=== PATIENT | male | born 2000 | race Caucasian/White ===

== ENCOUNTER → 2023-08-05 15:41 | Outpatient (REF) | payer OTHER, SELFPAY | LOC: HWRAD 15:41 | PROVIDERS: ATTENDING PHYSICIAN Physical Medicine & Rehabilitation | DX: H05.53 Retained (old) foreign body following penetrating wound of bilateral orbits (principal) | CPT/HCPCS: 70030 ==

== ENCOUNTER → 2023-12-31 11:09 | Outpatient (REF) | payer OTHER, SELFPAY | LOC: HWRAD 11:09 | PROVIDERS: ATTENDING PHYSICIAN Physical Medicine & Rehabilitation; FAMILY PHYSICIAN Family Medicine | DX: T15.90XA Foreign body on external eye, part unspecified, unspecified eye, initial encounter (principal) | CPT/HCPCS: 70030 ==